=== PATIENT | male | born 1940 | race Caucasian/White ===

== ENCOUNTER → 2017-11-08 09:05 | Outpatient (CLI) | payer MEDICARE, SELFPAY ==
--- NOTE | 2017-11-08 | DI.CT.S_ITS ---
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 For radiation dose reduction, the following was used: automated exposure control, adjustment of mA and/or kV according to patient size. COMPARISON: [facility], CT, CT SOFT TISSUE NECK WO CON, 11/08/2017, 9:09. Outside Facility, RG, CT HEAD W/O CONTRAST, 10/23/2017, 15:08. FINDINGS: Image quality: Excellent. CSF spaces: Basal cisterns are patent. No extra-axial fluid collections. The ventricles are symmetric in size and shape. Brain: No intracranial bleeds or masses. There is cerebral volume loss for age, with resultant ventricular and sulcal prominence. There are periventricular and deep white matter chronic small vessel ischemic changes. There is intracranial internal carotid artery atherosclerosis. Skull and face: There is a prominent lytic process involving the left parietal calvarium, with full-thickness bone loss and overlying soft tissue gas and soft tissue thickening. There is a less prominent lytic process seen involving the right parietal calvarium. Soft tissue thickening involves the forehead to the left of the midline, as on series 4 image 18. Sinuses: Visualized sinuses and mastoids are clear. IMPRESSION: Examination similar to the outside prior, with a lytic process involving left frontal calvarium, with full-thickness bone loss. There is overlying soft tissue gas and soft tissue thickening seen. Stable right parietal calvarium partially lytic lesion. Stable soft tissue thickening can be seen involving the forehead, to the left of midline. No definite intracranial involvement can be seen. Dictated by: Charlie Escoto M.D. on 11/14/2017 at 16:25 Approved by: Charlie Escoto M.D. on 11/14/2017 at 16:29
--- NOTE | 2017-11-08 | DI.CT.S_ITS ---
PROCEDURE: CT SOFT TISSUE NECK WO CON INDICATIONS: Squamous cell cancer of scalp and of neck TECHNIQUE: Non-contrast 3.0 mm axial sections acquired from the sella to the aortic arch. Additional oblique axial 3.0 mm sections acquired through the pharynx. 3 mm thick coronal and sagittal reformats were generated. For radiation dose reduction, the following was used: automated exposure control. COMPARISON: Outside Facility, RG, CT HEAD W/O CONTRAST, 10/23/2017, 15:08. [facility], CT, CT HEAD/BRAIN WO CON, 11/08/2017, 9:09. This dictation was delayed, awaiting outside prior images, which have now arrived. FINDINGS: Image quality: Excellent. Lymph nodes: No enlarged lymph nodes seen throughout the neck. Vessels: Non-opacified vessels appear normal in caliber. Neck spaces: The oropharynx, nasopharynx, and pharynx demonstrate no mucosal lesions. The vocal cords, false vocal cords, pyriform sinuses, epiglottis, vallecula, and tongue base all appear normal. Extramucosal spaces appear unremarkable. Glands: The parotid and submandibular glands appear normal, without stones. Thyroid gland demonstrates no significant noncontrast abnormality. Miscellaneous: Visualized brain and orbits appear normal. Lung apices appear clear. Superficial soft tissues appear normal. Atherosclerotic calcification is noted. There is a partially visualized likely lytic process involving the right proximal humeral shaft, as on series 12 image 27. Relatively prominent cervical spine degenerative change can be seen at the C4-C5, C5-C6, and C6-C7 levels. Grade 1 anterolisthesis is seen at C3-C4 and C7-T1. Dextroconvex cervicothoracic curvature can be seen. IMPRESSION: No definite enlarged lymph nodes or soft tissue masses can be seen. There is partial visualization of a likely lytic process involving the right proximal humeral shaft. Please consider additional imaging, beginning with a plain film series. However, if a PET/CT is upcoming on this patient, it would likely display this area adequately. Incidental note is made of: Cervical spine degenerative change Dictated by: Charlie Escoto M.D. on 11/14/2017 at 16:05 Approved by: Charlie Escoto M.D. on 11/14/2017 at 16:25
== END ==
PROVIDERS: Family Provider Physician Assistant; PCP Physician Assistant; Visit Provider Plastic Surgery
DX: C44.42 Squamous cell carcinoma of skin of scalp and neck (principal); M50.30 Other cervical disc degeneration, unspecified cervical region
CPT/HCPCS: 70450; 70490

== ENCOUNTER → 2017-11-17 13:45 | Outpatient (CLI) | payer MEDICARE, SELFPAY | PROVIDERS: Family Provider Physician Assistant; PCP Physician Assistant; Visit Provider Internal Medicine | DX: C44.42 Squamous cell carcinoma of skin of scalp and neck (principal); D69.6 Thrombocytopenia, unspecified | CPT/HCPCS: 99213 ==

== ENCOUNTER → 2017-11-18 15:14 | Outpatient (CLI) | payer MEDICARE, SELFPAY | PROVIDERS: Family Provider Physician Assistant; PCP Physician Assistant; Visit Provider Internal Medicine | DX: C44.42 Squamous cell carcinoma of skin of scalp and neck (principal); D69.6 Thrombocytopenia, unspecified | CPT/HCPCS: 99212 ==

== ENCOUNTER → 2017-11-21 13:30 | Outpatient (CLI) | payer MEDICARE, SELFPAY | PROVIDERS: Family Provider Physician Assistant; PCP Physician Assistant; Visit Provider Internal Medicine | DX: C44.42 Squamous cell carcinoma of skin of scalp and neck (principal); D69.6 Thrombocytopenia, unspecified | CPT/HCPCS: 99212 ==

== ENCOUNTER → 2017-11-24 10:06 | Outpatient (CLI) | payer MEDICARE, SELFPAY | PROVIDERS: Family Provider Physician Assistant; PCP Physician Assistant; Visit Provider Internal Medicine ==

== ENCOUNTER → 2017-11-24 10:15 | Outpatient (CLI) | payer MEDICARE, SELFPAY ==
--- NOTE | 2017-11-24 | OV.WND_ITS ---
Progress Note Details Patient Name: Jerzy Briscoe Patient Number: [id number] PatientPatientDate: 11/24/2017 Clinician: Karissa Patel Clinician Cosigner: Tiff Banuelos Physician / Automatic Cigar Wrapper Tender: Tobi Casas SUBJECTIVE Chief Complaint This information was obtained from the patient Squamous cell skin cancer to scalp, non-healing wound. Allergies Augmentin (Reaction: swollen tounge), Aldactone HPI This information was obtained from the patient 11/24/17. Seen by Dr. Casas. 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 The patient nor his report problems with the dressing changes such as increased drainage, pain, or bleeding noting his thrombocytopenia. 11/17/17. Seen by Dr. Casas. The patient's new to our clinic and presents with a large squamous cell tumor over the posterior scalp. He's to attend the [facility] next Tuesday for is first visit and primarily requires dressing change recommendations noting there's been some intermittent and significant bleeding from the lesion over the past few weeks. He also reports low platelets in the 40's and received 2 units of platelets on a recent visit to the [facility]. Past Medical History This information was obtained from the patient Patient has a medical history of: Squamous cell carcinoma (scalp) Thrombocytopenia Restless Legs Right Ear Deafness Chronic Kidney Disease (stage 4) Hypertension Hyperlipidemia Prostate Cancer (Surgical removal) Gouty Arthritis Coronary Artery Disease (CAD) Lumbar DDD Complaints and Symptoms This information was obtained from the patient Patient complains of: General Notes: I have reviewed and concur with the Review of Systems and Past Family Social History documents completed by the clinician, I have reviewed and concur with the Wound Assessment document completed by the clinician Hematologic/Lymphatic: Bleeding / Clotting Disorders, Bleeding Tendency Integumentary (Hair/Skin/Nails): Open Sore Musculoskeletal: Muscle Weakness Prior Wound History: Bleeding, Drainage Patient denies complaints or symptoms related to: Cardiovascular (Central): Irregular heart beat Constitutional Symptoms (General Health): Fever Ear/Nose/Mouth/Throat: Hearing Loss / Aid Oncologic Respiratory: Shortness of Breath OBJECTIVE Constitutional Vital signs reviewed and noted. Frail appearing. Height/Length: 69 in (175.26 cm ), Weight: 149.2 lbs (67.82 kgs), BMI: 22, Temperature: 97.8 ?F (36.56 ?C), Pulse: 68 bpm, Respiratory Rate: 18 breaths/min, Blood Pressure: 103/69 mmHg, Pulse Oximetry: 98 %. Ears, Nose, Mouth, and Throat: No clinically significant hearing loss on informal examination. Integumentary (Hair, Skin) Mild periwound erythema. Refer to appropriate clinician wound documentation for this visit; large approx 8cm diameter indurated ulcer over posterior scalp extending to bone ; a few satellite lesions noted anteriorly, minimal bleeding. Wound #1 Head is a chronic Full Thickness Atypical and has received a status of Not Healed. Subsequent wound encounter measurements are 4.1cm length x 3.8cm width x 1.5cm depth, with an area of 15.58 sq cm and a volume of 23.37 cubic cm. No tunneling has been noted. No sinus tract has been noted. Undermining has been noted at 12:00 and ends at 12: 00 with a maximum distance of 1.5cm. There is a large amount of sanguineous drainage noted which has no odor. The patient reports a wound pain of level 7/10. The wound margin is irregular. Wound bed has No epithelialization, No eschar, Yes slough, Yes bright red, pink , firm granulation. The periwound skin texture is normal. The periwound skin moisture is normal. The periwound skin color is normal. The temperature of the periwound skin is WNL. Periwound skin does not exhibit signs or symptoms of infection. Local Pulse is N/A. Neurological: Cranial nerves grossly intact with symmetric function normal by informal observation.. ASSESSMENT Active Problems ICD-10 (Encounter Diagnosis) C44.42 - Squamous cell carcinoma of skin of scalp and neck (Encounter Diagnosis) D69.6 - Thrombocytopenia, unspecified PLAN Wound Orders: Wound #1 Head Cleanser Cleanse Wound: - Normal saline in Clinic. May use distilled water at home. May Shower. - Please avoid getting tap water in wound. Dressings Pack wound: - Puracol collagen. Primary dressing: - Adaptic. Cover and secure with: - Alginate cut to size of wound over top of adaptic. Mepilex 6x6 bordered foam to cover and secure. Silicone tape to reinforce edges. Change Dressing: - Drerssing change this Tuesday. Additional Orders: Follow-Up Appointments Return Appointment: - - One week. Other information: If you develop fever, chills, increased pain, drainage, redness or swelling please call our office. If after hours, respond to the ER. Should you experience any significant changes in your wound(s) or have any questions regarding your home care instructions please contact the wound center @ [phone]. If after hours, contact your primary care physician or go to the hospital emergency room. Scribing Attestation I attest, as the nurse, that I scribed these orders for the physician. I've reviewed the clinician's documentation and agree with the evaluation and plan as written. Also, the scalp ulcer appears stable and we'll continue to assist with dressing changes as needed. I've also advised him that we'll accommodate a same day appointment if possible should the drainage from the ulcer increase or if there are concerns for evolving infection. Electronic Signature(s) Signed By: Date: Tobi Casas MD 11/25/2017 08:42:30 Entered By: Tobi Casas on 11/24/2017 11:35:34
== END ==
PROVIDERS: Family Provider Physician Assistant; PCP Physician Assistant; Visit Provider Internal Medicine
DX: C44.42 Squamous cell carcinoma of skin of scalp and neck (principal); D69.6 Thrombocytopenia, unspecified
CPT/HCPCS: 99212

== ENCOUNTER → 2017-12-01 11:28 | Outpatient (CLI) | payer MEDICARE, SELFPAY ==
--- NOTE | 2017-12-01 | OV.WND_ITS ---
Progress Note Details Patient Name: Jerzy Briscoe Patient Number: [id number] PatientPatientDate: 12/01/2017 Clinician: Karissa Patel Clinician Cosigner: Dalia Tabares Physician / Executive Talent Acquisition Consultant: Simeon Abarca SUBJECTIVE Chief Complaint This information was obtained from the patient Squamous cell skin cancer to scalp, non-healing wound. Allergies Augmentin (Reaction: swollen tounge), Aldactone HPI This information was obtained from the patient 12/01/17. Seen by Sukhwinder Abarca PA-C. The patient reports continued copious drainage from his scalp lesion. He will be seeing [facility] providers this week for further testing regarding his squamous cell carcinoma. 11/24/17. Seen by Dr. Casas. 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 The patient nor his report problems with the dressing changes such as increased drainage, pain, or bleeding noting his thrombocytopenia. 11/17/17. Seen by Dr. Casas. The patient's new to our clinic and presents with a large squamous cell tumor over the posterior scalp. He's to attend the [facility] next Tuesday for is first visit and primarily requires dressing change recommendations noting there's been some intermittent and significant bleeding from the lesion over the past few weeks. He also reports low platelets in the 40's and received 2 units of platelets on a recent visit to the [facility]. Family History This information was obtained from the patient Diabetes - Sibling, Heart Disease - Mother, Hypertension - Mother, Child, Kidney Disease - Sibling, Stroke - Father Social History This information was obtained from the patient Alcohol Use - occasional, Caffeine Use - 4 cups day, Children, Lives in, Retired , Tobacco Use - 10 a day Past Medical History This information was obtained from the patient Patient has a medical history of: Squamous cell carcinoma (scalp) Thrombocytopenia Restless Legs Right Ear Deafness Chronic Kidney Disease (stage 4) Hypertension Hyperlipidemia Prostate Cancer (Surgical removal) Gouty Arthritis Coronary Artery Disease (CAD) Lumbar DDD Complaints and Symptoms This information was obtained from the patient Patient complains of: General Notes: I have reviewed and concur with the Review of Systems and Past Family Social History documents completed by the clinician, I have reviewed and concur with the Wound Assessment document completed by the clinician Hematologic/Lymphatic: Bleeding / Clotting Disorders, Bleeding Tendency Integumentary (Hair/Skin/Nails): Open Sore Musculoskeletal: Muscle Weakness Prior Wound History: Bleeding, Drainage Patient denies complaints or symptoms related to: Cardiovascular (Central): Irregular heart beat Constitutional Symptoms (General Health): Fever Ear/Nose/Mouth/Throat: Hearing Loss / Aid Oncologic Respiratory: Shortness of Breath OBJECTIVE Constitutional Vital signs reviewed and noted. Well developed, lucid, and in no acute distress. . Height/Length: 69 in (175.26 cm), Weight: 149.2 lbs (67.82 kgs), BMI: 22, Temperature: 98.6 ?F (37 ?C), Pulse: 68 bpm, Respiratory Rate: 18 breaths/min, Blood Pressure: 126 /81 mmHg, Pulse Oximetry: 98 %. Eyes: Conjunctiva clear and without icterus. Pupils are equal and round; EOM's intact. Respiratory: No respiratory distress. Even respirations and without use of accessory muscles.. Integumentary (Hair, Skin) Refer to appropriate clinician wound documentation for this visit; ulcer extends to subcutaneous fat layer. . Wound #1 Head is a chronic Full Thickness Atypical and has received a status of Not Healed. Subsequent wound encounter measurements are 6cm length x 4.3cm width x 0.4cm depth, with an area of 25.8 sq cm and a volume of 10.32 cubic cm. There is a large amount of sanguineous drainage noted which has no odor. The patient reports a wound pain of level 7/10. The wound margin is irregular. Wound bed has No epithelialization, No eschar, Yes slough, Yes bright red, pink, firm granulation. The periwound skin texture is normal. The periwound skin moisture is normal. The periwound skin color is normal. The temperature of the periwound skin is WNL. Periwound skin does not exhibit signs or symptoms of infection. Local Pulse is N/A. Psychiatric: Judgement and insight: Normal affect with normal thought pattern. Alert and oriented 3/3. Memory grossly intact.. Normal affect. Mood appropriate.. ASSESSMENT Active Problems ICD-10 (Encounter Diagnosis) C44.42 - Squamous cell carcinoma of skin of scalp and neck (Encounter Diagnosis) S01.80XD - Unspecified open wound of other part of head, subsequent encounter PLAN Wound Orders: Wound #1 Head Cleanser Cleanse Wound: - With Normal Saline or distilled water. Dressings Pack wound: - Collagen to wound base. Primary dressing: - Adaptic over collagen then place silver alginate over adaptic. Cover and secure with: - Boarder foam. Change Dressing: - Every 2 days Follow-Up Appointments Return Appointment: - - Return in 7-10 days Other information: If you develop fever, chills, increased pain, drainage, redness or swelling please call our office. If after hours, respond to the ER. Should you experience any significant changes in your wound(s) or have any questions regarding your home care instructions please contact the wound center @ [phone]. If after hours, contact your primary care physician or go to the hospital emergency room. Scribing Attestation I attest, as the nurse, that I scribed these orders for the physician. I've reviewed the clinician's documentation and agree with the evaluation and plan as written. The patient's condition continues to be medically complex requiring continued and regular specialty wound care clinic visits. To that end we will continue with routine dressing changes and in clinic medical assessments including surveillance for bacterial infection as well as routine debridements of non-viable tissue when needed. Electronic Signature(s) Signed By: Date: Sukhwinder Abarca 12/05/2017 12:48:23 Entered By: Sukhwinder Abarca on 12/05/2017 10:23:40
== END ==
PROVIDERS: Family Provider Physician Assistant; PCP Physician Assistant; Visit Provider Physician Assistant
DX: C44.42 Squamous cell carcinoma of skin of scalp and neck (principal); S01.80XD Unspecified open wound of other part of head, subsequent encounter
CPT/HCPCS: 99212

== ENCOUNTER → 2017-12-15 13:34 | Outpatient (CLI) | payer MEDICARE, SELFPAY | PROVIDERS: Family Provider Physician Assistant; PCP Physician Assistant; Visit Provider Internal Medicine | DX: C44.42 Squamous cell carcinoma of skin of scalp and neck (principal); S01.80XD Unspecified open wound of other part of head, subsequent encounter; N18.6 End stage renal disease | CPT/HCPCS: 99212 ==

== ENCOUNTER → 2017-12-26 09:39 | Outpatient (CLI) | payer MEDICARE, SELFPAY ==
--- NOTE | 2017-12-26 | OV.WND_ITS ---
Progress Note Details Patient Name: Jerzy Briscoe Patient Number: [id number] PatientPatientDate: 12/26/2017 Clinician: Maria Fernanda Canseco Clinician Cosigner: Celine Vaca Physician / Elevator Worker: Tobi Casas SUBJECTIVE Chief Complaint This information was obtained from the patient Squamous cell skin cancer to scalp, non-healing wound. Allergies Augmentin (Reaction: swollen tounge), Aldactone HPI This information was obtained from the patient 12/26/17. Seen by Dr. Casas. The patient's reports heavy drainage on his dressings covering the squamous cell carcinoma over the posterior scalp and she's changing the dressings every other day. He continues on chemotherapy and they are not sure what his current platelet count is but report friability and troublesome bleeding when dressings are changed. 12/15/17. Seen by Dr. Casas. The patient and his report significant drainage associated with the squamous cell carcinoma of the scalp and she changing the dressing every other day stating the dressings are soaked. He's received his 1st dose of chemotherapy and has an appointment with surgery next week. He's also started dialysis and does not report any acute issues at this time. 12/01/17. Seen by Sukhwinder Abarca PA-C. The patient reports continued copious drainage from his scalp lesion. He will be seeing [facility] providers this week for further testing regarding his squamous cell carcinoma. 11/24/17. Seen by Dr. Casas. 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 The patient nor his report problems with the dressing changes such as increased drainage, pain, or bleeding noting his thrombocytopenia. 11/17/17. Seen by Dr. Casas. The patient's new to our clinic and presents with a large squamous cell tumor over the posterior scalp. He's to attend the [facility] next Tuesday for is first visit and primarily requires dressing change recommendations noting there's been some intermittent and significant bleeding from the lesion over the past few weeks. He also reports low platelets in the 40's and received 2 units of platelets on a recent visit to the [facility]. Past Medical History This information was obtained from the patient Patient has a medical history of: Squamous cell carcinoma (scalp) Thrombocytopenia Restless Legs Right Ear Deafness Chronic Kidney Disease (stage 4) Hypertension Hyperlipidemia Prostate Cancer (Surgical removal) Gouty Arthritis Coronary Artery Disease (CAD) Lumbar DDD Complaints and Symptoms This information was obtained from the patient Patient complains of: General Notes: I have reviewed and concur with the Review of Systems and Past Family Social History documents completed by the clinician, I have reviewed and concur with the Wound Assessment document completed by the clinician Hematologic/Lymphatic: Bleeding / Clotting Disorders, Bleeding Tendency Integumentary (Hair/Skin/Nails): Open Sore Musculoskeletal: Muscle Weakness Prior Wound History: Bleeding, Drainage Patient denies complaints or symptoms related to: Cardiovascular (Central): Irregular heart beat Constitutional Symptoms (General Health): Fever Ear/Nose/Mouth/Throat: Hearing Loss / Aid Oncologic Respiratory: Shortness of Breath OBJECTIVE Constitutional BP elevated; Afebrile; Alert and in no distress. Frail appearing. Height/Length : 69 in (175.26 cm), Weight: 146.3 lbs (66.5 kgs), BMI: 21.6, Temperature: 98 ?F (36.67 ?C), Pulse: 75 bpm, Respiratory Rate: 18 breaths/min, Blood Pressure: 152/78 mmHg, Pulse Oximetry: 96 %. Ears, Nose, Mouth, and Throat: No clinically significant hearing loss on informal examination. Respiratory: No respiratory distress. Even respirations and without use of accessory muscles.. Integumentary (Hair, Skin) Refer to appropriate clinician wound documentation for this visit; large approx 8cm diameter indurated ulcer over posterior scalp extending to bone; a few satellite lesions noted anteriorly, ulcer base friable and bleeds easily when touched with gauze. Wound #1 Head is a chronic Full Thickness Atypical and has received a status of Not Healed. Subsequent wound encounter measurements are 6.2cm length x 4.5cm width x 0.7cm depth, with an area of 27.9 sq cm and a volume of 19.53 cubic cm. No tunneling has been noted. Undermining has been noted at 8:00 and ends at 10:00 with a maximum distance of 0.5cm. There is a large amount of sanguineous drainage noted which has no odor. The patient reports a wound pain of level 7/10. The wound margin is irregular. Wound bed has No epithelialization, No eschar, Yes slough, Yes bright red, firm granulation. The periwound skin texture is normal. The periwound skin moisture is normal. The periwound skin color is normal. The temperature of the periwound skin is WNL. Periwound skin does not exhibit signs or symptoms of infection. Local Pulse is N/A. Neurological: Cranial nerves grossly intact with symmetric function normal by informal observation.. ASSESSMENT Active Problems ICD-10 (Encounter Diagnosis) C44.42 - Squamous cell carcinoma of skin of scalp and neck (Encounter Diagnosis) S01.80XD - Unspecified open wound of other part of head, subsequent encounter PLAN Wound Orders: Wound #1 Head Cleanser Cleanse Wound: - With Normal Saline or distilled water. Dressings Pack wound: - Aquacel to Wound bed. Cover and secure with: - Mextra superabsorbant Change Dressing: - Every. Follow-Up Appointments Return Appointment: - - Return in 7-10 days Other information: If you develop fever, chills, increased pain, drainage, redness or swelling please call our office. If after hours, respond to the ER. Should you experience any significant changes in your wound(s) or have any questions regarding your home care instructions please contact the wound center @ [phone]. If after hours, contact your primary care physician or go to the hospital emergency room. Scribing Attestation I attest, as the nurse, that I scribed these orders for the physician. I've reviewed the clinician's documentation and agree with the evaluation and plan as written. Also, I've recommended increasing dressing changes to daily as the ulcer base is friable and appears somewhat hypergranulated. Electronic Signature(s) Signed By: Date: Tobi Casas MD 12/26/2017 13:33:28 Entered By: Tobi Casas on 12/26/2017 13:28:43
== END ==
PROVIDERS: Family Provider Physician Assistant; PCP Physician Assistant; Visit Provider Internal Medicine
DX: C44.42 Squamous cell carcinoma of skin of scalp and neck (principal); S01.80XD Unspecified open wound of other part of head, subsequent encounter
CPT/HCPCS: 99212

== ENCOUNTER → 2018-01-09 10:28 | Outpatient (CLI) | payer MEDICARE, SELFPAY ==
--- NOTE | 2018-01-09 | OV.WND_ITS ---
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 Allergies Augmentin (Reaction: swollen tounge), Aldactone HPI This information was obtained from the patient 01/09/18. Seen by Dr. Casas. The patient reports some pain associated with the scalp wound upon probing today but otherwise does not report acute changes regarding the large squamous cell carcinoma. His feels the current dressing regimen has been adequate and he's scheduled for resection of the lesion by plastic surgery at on January 27. He also continues on chemotherapy and states his platelets are above 100. 12/26/17. Seen by Dr. Casas. The patient's reports heavy drainage on his dressings covering the squamous cell carcinoma over the posterior scalp and she's changing the dressings every other day. He continues on chemotherapy and they are not sure what his current platelet count is but report friability and troublesome bleeding when dressings are changed. 12/15/17. Seen by Dr. Casas. The patient and his report significant drainage associated with the squamous cell carcinoma of the scalp and she changing the dressing every other day stating the dressings are soaked. He's received his 1st dose of chemotherapy and has an appointment with surgery next week. He's also started dialysis and does not report any acute issues at this time. 12/01/17. Seen by Sukhwinder Abarca PA-C. The patient reports continued copious drainage from his scalp lesion. He will be seeing [facility] providers this week for further testing regarding his squamous cell carcinoma. 11/24/17. Seen by Dr. Casas. 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 The patient nor his report problems with the dressing changes such as increased drainage, pain, or bleeding noting his thrombocytopenia. 11/17/17. Seen by Dr. Casas. The patient's new to our clinic and presents with a large squamous cell tumor over the posterior scalp. He's to attend the [facility] next Tuesday for is first visit and primarily requires dressing change recommendations noting there's been some intermittent and significant bleeding from the lesion over the past few weeks. He also reports low platelets in the 40's and received 2 units of platelets on a recent visit to the [facility]. Past Medical History This information was obtained from the patient Patient has a medical history of: Squamous cell carcinoma (scalp) Thrombocytopenia Restless Legs Right Ear Deafness Chronic Kidney Disease (stage 4) Hypertension Hyperlipidemia Prostate Cancer (Surgical removal) Gouty Arthritis Coronary Artery Disease (CAD) Lumbar DDD Complaints and Symptoms This information was obtained from the patient Patient complains of: General Notes: I have reviewed and concur with the Review of Systems and Past Family Social History documents completed by the clinician, I have reviewed and concur with the Wound Assessment document completed by the clinician Hematologic/Lymphatic: Bleeding / Clotting Disorders, Bleeding Tendency Integumentary (Hair/Skin/Nails): Open Sore Musculoskeletal: Muscle Weakness Prior Wound History: Bleeding, Drainage Patient denies complaints or symptoms related to: Cardiovascular (Central): Irregular heart beat Constitutional Symptoms (General Health): Fever Ear/Nose/Mouth/Throat: Hearing Loss / Aid Oncologic Respiratory: Shortness of Breath OBJECTIVE Constitutional Vital signs reviewed and noted. Frail appearing. Height/Length: 69 in (175.26 cm ), Weight: 139.7 lbs (63.5 kgs), BMI: 20.6, Temperature: 98.2 ?F (36.78 ?C), Pulse: 66 bpm , Respiratory Rate: 18 breaths/min, Blood Pressure: 118/72 mmHg, Pulse Oximetry: 94 %. Ears, Nose, Mouth, and Throat: No clinically significant hearing loss on informal examination. Respiratory: No respiratory distress. Even respirations and without use of accessory muscles.. Integumentary (Hair, Skin) No periwound erythema, warmth, or significant drainage. No periwound rashes appreciated or noted otherwise.. Refer to appropriate clinician wound documentation for this visit; posterior scalp ulcer appears clean with base covered with pink granulation; induration improved from previous review. Wound #1 Head is a chronic Full Thickness Atypical and has received a status of Not Healed. Subsequent wound encounter measurements are 6.1cm length x 4.5cm width x 0.6cm depth, with an area of 27.45 sq cm and a volume of 16.47 cubic cm. No tunneling has been noted. No sinus tract has been noted. Undermining has been noted at 8:00 and ends at 10: 00 with a maximum distance of 0.5cm. There is a large amount of sero-sanguineous drainage noted which has no odor. The patient reports a wound pain of level 7/10. The wound margin is irregular. Wound bed has No epithelialization, No eschar, Yes slough, Yes bright red, pink, firm granulation. The periwound skin texture is normal. The periwound skin moisture is normal. The periwound skin color is normal. The temperature of the periwound skin is WNL. Periwound skin does not exhibit signs or symptoms of infection. Local Pulse is N/A. Neurological: Cranial nerves grossly intact with symmetric function normal by informal observation.. ASSESSMENT Active Problems ICD-10 (Encounter Diagnosis) C44.42 - Squamous cell carcinoma of skin of scalp and neck (Encounter Diagnosis) S01.80XD - Unspecified open wound of other part of head, subsequent encounter PLAN Wound Orders: Wound #1 Head Cleanser Cleanse Wound: - With Normal Saline or distilled water. Dressings Pack wound: - Aquacel to Wound bed. Cover and secure with: - Sorbion sachet S 4x4 dressing, secured with silicone tape. Change Dressing: - Daily. Follow-Up Appointments Return Appointment: - - 01/19/18. Other information: If you develop fever, chills, increased pain, drainage, redness or swelling please call our office. If after hours, respond to the ER. Should you experience any significant changes in your wound(s) or have any questions regarding your home care instructions please contact the wound center @ [phone]. If after hours, contact your primary care physician or go to the hospital emergency room. Scribing Attestation I attest, as the nurse, that I scribed these orders for the physician. General Notes: Supply order submitted today, will be sent out around 01/15/18. I've reviewed the clinician's documentation and agree with the evaluation and plan as written. Also, the patient's will continue with the current dressing regimen and we' ll see the patient once more in clinic before his surgery on January 27. Electronic Signature(s) Signed By: Date: Tobi Casas MD 01/10/2018 07:58:14 Entered By: Tobi Casas on 01/10/2018 07:52:05
== END ==
PROVIDERS: Family Provider Physician Assistant; PCP Physician Assistant; Visit Provider Internal Medicine
DX: C44.42 Squamous cell carcinoma of skin of scalp and neck (principal); S01.80XD Unspecified open wound of other part of head, subsequent encounter
CPT/HCPCS: 99212

== ENCOUNTER → 2019-10-04 09:37 | Outpatient (CLI) | payer MEDICARE, SELFPAY ==
--- NOTE | 2019-10-04 | DI.MRI.S_ITS ---
PROCEDURE: MR LUMBAR SPINE WO CON INDICATIONS: Low back pain TECHNIQUE: Noncontrast sagittal T1 spin echo and T2 fast echo, sagittal STIR, axial T1 and T2 fast spin echo through the lumbar spine. In cases with scoliosis, additional coronal T2 fast spin echo may be performed. COMPARISON: [facility], CR, XR LUMBAR SPINE 2 OR 3VW, 06/10/2015, 12:21. [facility], MR, ABDOMEN WITHOUT CONTRAST, 10/10/2017, 7:03. FINDINGS: Image quality: Excellent. Alignment and Curvature: 5 lumbar type vertebral bodies are present by plain film. There is loss of normal lumbar lordosis. Bone Marrow: Marrow is of normal overall signal. There is moderate wedging of L4 which demonstrates ill-defined linear low T1/T2 signal intensity traversing its superior endplate. A Schmorl's node invaginates the superior L4 endplate. There is severe ill-defined STIR signal in a patient throughout the mid and superior aspects of the L4 vertebral body. Mild reactive signal within the endplates adjacent to the T10-T11, T11-T12, T12-L1, L1-L2, L2-L3, L3-L4, L4-L5, and L5-S1 intervertebral discs. Spinal Cord: Conus medullaris terminates at the lower L1 level. Visualized cord demonstrates normal signal and size. Paraspinous Soft Tissues: Multiple bilateral renal cysts are present, as before. L1-L2: Mild disc desiccation and diffuse disc bulge. No significant canal, nor foraminal stenosis. L2-L3: Moderate disc height loss and desiccation. Mild diffuse disc bulge. Mild facet and ligament flavum hypertrophy. Mild canal stenosis. Mild bilateral foraminal stenosis. L3-L4: Moderate disc desiccation. Mild diffuse disc bulge. Mild facet and ligament flavum hypertrophy. Mild epidural lipomatosis. Mild canal stenosis. Mild bilateral foraminal stenosis. L4-L5: Moderate disc desiccation. Moderate diffuse disc bulge. Mild facet and ligament flavum hypertrophy. Mild epidural lipomatosis. Mild canal stenosis. Moderate bilateral foraminal stenosis. L5-S1: Moderate disc desiccation. Mild diffuse disc bulge. Mild facet and ligamentum flavum hypertrophy. Mild canal stenosis. Mild bilateral foraminal stenosis. IMPRESSION: 1. Subacute L4 compression fracture. This lesion would be amenable to percutaneous vertebral augmentation. Interventional radiology consultation at [facility] could be obtained, if clinically indicated. 2. Multilevel degenerative disc and facet disease, as well as ligamentum flavum hypertrophy and epidural lipomatosis. 3. Mild multilevel canal stenosis. 4. Multilevel foraminal stenoses, worst at L4-L5 where there are moderate foraminal stenoses. Dictated by: Vinicius Phillips M.D. on 10/04/2019 at 10:56 Approved by: Vinicius Phillips M.D. on 10/04/2019 at 11:04
== END ==
PROVIDERS: Family Provider Physician Assistant; PCP Internal Medicine; Referring Provider Internal Medicine; Visit Provider Internal Medicine
DX: M54.5 Low back pain (principal); M48.56XA Collapsed vertebra, not elsewhere classified, lumbar region, initial encounter for fracture; M51.36 Other intervertebral disc degeneration, lumbar region; M51.37 Other intervertebral disc degeneration, lumbosacral region; M48.062 Spinal stenosis, lumbar region with neurogenic claudication; M48.07 Spinal stenosis, lumbosacral region; E88.2 Lipomatosis, not elsewhere classified
CPT/HCPCS: 72148

== ENCOUNTER → 2019-11-15 13:02 | Outpatient (CLI) | payer MEDICARE, SELFPAY ==
--- NOTE | 2019-11-15 13:04 | DI.RAD.S_ITS ---
PROCEDURE: XR LUMBAR SPINE MIN 4V INDICATIONS: Low back pain TECHNIQUE: 5 views of the lumbar spine were acquired. COMPARISON: [facility], CT, KIDNEY/ URETER/BLADDER, 09/12/2015, 12:16. [facility], MR, ABDOMEN WITHOUT CONTRAST, 10/10/2017, 7:03. [facility], MR, MR LUMBAR SPINE WO CON, 10/04/2019, 10:11. FINDINGS: Bones: 5 nonrib-bearing vertebrae are present. There is normal bony alignment. No new vertebral body compression fractures. In addition to the previously identified superior endplate impaction fracture at L4, best seen by MR scanning 10/04/19. No suspicious bony lesions. Soft tissues: Overlying bowel gas pattern is normal. No suspicious soft tissue calcifications. Oblique images: No pars defects. IMPRESSION: Degenerative disc disease has not appreciably worsened over the lumbosacral spine, mild to moderate in overall severity. A previously present superior L4 endplate impaction fracture is again noted, and was not present in September [address] scanning that included that area. No osteolytic or blastic change is seen, osteoporotic compression fracture is the likely cause. No significant malalignment. Dictated by: Michael Cannon M.D. on 11/15/2019 at 14:59 Approved by: Michael Cannon M.D. on 11/15/2019 at 15:04
== END ==
PROVIDERS: Family Provider Physician Assistant; PCP Internal Medicine; Referring Provider Physical Medicine & Rehabilitation; Visit Provider Physical Medicine & Rehabilitation
DX: M54.5 Low back pain (principal); M51.37 Other intervertebral disc degeneration, lumbosacral region; S32.049A Unspecified fracture of fourth lumbar vertebra, initial encounter for closed fracture
CPT/HCPCS: 72110

== ENCOUNTER → 2021-01-27 15:11 | Outpatient (CLI) | payer MEDICARE, SELFPAY ==
[2021-01-27 18:15] LABS: Prostate Specific Antigen < 0.064 ng/mL (0.10-4.00)
== END ==
PROVIDERS: Family Provider Physician Assistant; PCP Internal Medicine; Visit Provider Urology
DX: R30.0 Dysuria (principal); R31.0 Gross hematuria; C44.42 Squamous cell carcinoma of skin of scalp and neck; N18.6 End stage renal disease; Z99.2 Dependence on renal dialysis; Z85.46 Personal history of malignant neoplasm of prostate; Z90.79 Acquired absence of other genital organ(s)
CPT/HCPCS: 36415; 81002; 84153; 87086; 99215

== ENCOUNTER → 2021-02-24 13:58 | Outpatient (CLI) | payer MEDICARE, SELFPAY ==
--- NOTE | 2021-02-24 14:24 | DI.CT.S_ITS ---
PROCEDURE: CT ABDOMEN PELVIS WO CON INDICATIONS: Gross hematuria TECHNIQUE: Axial sections were acquired from the lung bases to the pubic symphysis. Coronal and sagittal reformats were performed. For radiation dose reduction, the following was used: automated exposure control, adjustment of mA and/or kV according to patient size. COMPARISON: [facility], CR, XR LUMBAR SPINE MIN 4V, 11/15/2019, 12:29. [facility], MR, ABDOMEN WITHOUT CONTRAST, 10/10/2017, 7:03. [facility], XA, SI TUNNELED CATHETER, 11/28/2017, 15:44. [facility], US, US ABDOMEN LIMITED, 10/30/2020, 9:27. FINDINGS: Image quality: Excellent. Lung bases: Right lung base atelectasis or scarring. No pleural effusion. Heart: Coronary artery calcifications. Mitral annular calcifications. Gynecomastia. URINARY: Kidneys: Autosomal dominant polycystic kidneys. Largest cyst on the right measures 11.8 cm. Largest cyst on the left measures 13.9 cm. No kidney stones or hydroureter identified. The most distal ureters are seen. Overall the kidneys appears similar to the MRI from 2018. Bladder: Decompressed. Bladder wall is prominent. ABDOMEN: Liver: Very large cyst in the right lobe of the liver measuring 16.5 cm, (01/06). There is an adjacent rim calcified cyst measuring 10.9 cm which may be confluent. Small cyst in segment 4. Gallbladder: Subtle high-density material in the gallbladder. This could be due to sludge or stones. Biliary ducts: No dilatation appreciated. Pancreas: Unremarkable. Spleen: No splenomegaly. Adrenal Glands: No nodule. Stomach and Bowel: Stomach, small bowel loops, and colon are unremarkable. Peritoneum: No abnormal intraperitoneal fluid. No free air. Ventral Wall: No hernia. Abdominal Nodes: No enlarged retroperitoneal or mesenteric lymph nodes. Vessels: Aorta and inferior vena cava are normal in size. Extensive aortoiliac atherosclerotic plaque. PELVIS: Pelvic Organs: Prostatectomy. Pelvic Nodes: No enlarged nodes seen. Miscellaneous: Left inguinal hernia containing trace fluid. Bones: L4 compression fracture, new compared to November 2019. Multilevel DDD. No sclerotic lesions identified. Calcifications at the posterior left chest wall on the external side of the ribs. IMPRESSION: 1. No hydronephrosis or kidney stones identified. 2. Enlarged polycystic kidneys consistent with ADPCKD. 3. Large hepatic cysts. 4. Sludge or gallstones. 5. Prostatectomy. No sclerotic osseous lesions identified. No adenopathy. 6. L4 compression fracture which is new in the interval compared to November 2019. Dictated by: Mason Dutton M.D. on 02/24/2021 at 15:27 Approved by: Mason Dutton M.D. on 02/24/2021 at 15:49
== END ==
PROVIDERS: Family Provider Physician Assistant; PCP Internal Medicine; Referring Provider Urology; Visit Provider Urology
DX: R31.0 Gross hematuria (principal); K76.89 Other specified diseases of liver
CPT/HCPCS: 74176

== ENCOUNTER → 2021-03-10 11:36 | Outpatient (CLI) | payer MEDICARE, SELFPAY ==
[2021-03-10 11:48] LABS: Appearance Urine UA CLOUDY; Bilirubin Urine UA NEGATIVE (NEGATIVE); Color Urine UA ORANGE; Glucose Urine UA NEGATIVE (Negative); Ketones Urine UA NEGATIVE (NEGATIVE); Leukocyte Esterase Urine UA TRACE (NEGATIVE); Nitrite Urine UA NEGATIVE (Negative); Occult Blood Urine UA 3+ (Negative); Protein Urine UA 3+ (Negative); Urobilinogen Urine UA 0.2 E.U./dL (0.2); pH Urine UA 7.5 (4.5-8.0)
[2021-03-10 11:54] LABS: Bacteria Urine None Seen; Culture Indicated Urine Cult Not Indicated; RBC Urine >100/HPF (0-5/HPF); WBC Urine None Seen (0-5/HPF)
== END ==
PROVIDERS: Family Provider Physician Assistant; PCP Internal Medicine; Visit Provider Urology
DX: R31.0 Gross hematuria (principal); Q61.3 Polycystic kidney, unspecified; N18.6 End stage renal disease; Z90.79 Acquired absence of other genital organ(s); Z85.46 Personal history of malignant neoplasm of prostate
CPT/HCPCS: 81001; 99213

== ENCOUNTER → 2021-09-22 15:25 | Outpatient (CLI) | payer MEDICARE, SELFPAY ==
--- NOTE | 2021-09-22 15:29 | DI.RAD.S_ITS ---
PROCEDURE: XR CHEST 2V INDICATIONS: wheezing TECHNIQUE: 2 views of the chest were acquired. COMPARISON: [facility], CR, XR CHEST 1 VIEW, 10/20/2017, 19:20. FINDINGS: Surgical changes and devices: Left subclavian chest port is been placed with tube tip projected over the mid superior vena cava. Surgical clips within the lower neck. Left axillary surgical clips. Lungs and pleura: Examination is limited secondary to over penetrated technique. 1.9 cm rounded opacity projected over the mid left lung. Interstitium is prominent. No focal lung consolidation. Chronic elevation right hemidiaphragm. Mediastinum: Mediastinal contours are normal. Heart size is enlarged. Bones and chest wall: No suspicious bony abnormalities. Soft tissues appear unremarkable. IMPRESSION: 1. Exam limited secondary to overpenetrated technique. 2. 1.9 cm rounded opacity projected over the mid left lung. Pulmonary nodule cannot be excluded and attention on follow-up two view chest radiograph is recommended. 3. Mild interstitial prominence which appears similar to prior examination. 4. Chronic elevation of the right hemidiaphragm. Dictated by: Da Ba [facility] Interpreted: Abad Jenkins MD on 09/22/2021 at 16:32 Transcribed by: JOSE on 09/22/2021 at 16:35 Approved by: Abad Jenkins M.D. on 09/22/2021 at 18:06
== END ==
PROVIDERS: Family Provider Physician Assistant; PCP Internal Medicine; Referring Provider Internal Medicine; Visit Provider Internal Medicine
DX: R06.2 Wheezing (principal)
CPT/HCPCS: 71046

== ENCOUNTER 2021-10-04 11:17 | Emergency (ER) | payer MEDICARE, SELFPAY ==
[2021-10-04 11:29] VITALS: BP 153/73; PULSE 80; RESP 16; TEMP 36.5; O2SAT 97; BMI 20.7
--- NOTE | 2021-10-04 11:36 | DI.RAD.S_ITS ---
PROCEDURE: XR HIP W PEL IF DONE LT 2V INDICATIONS: Fall, pain with lifting leg TECHNIQUE: 2 views of the hip were acquired. COMPARISON: None. FINDINGS: Bones: No fractures or dislocations. No suspicious bony lesions. The visualized pelvic ring appears intact. Mild degenerative changes of the hips. Soft tissues: No suspicious soft tissue calcifications or masses. Multiple surgical clips are seen in the pelvis left thigh. Vasculature has atherosclerotic calcifications. IMPRESSION: No acute abnormality. Dictated by: Wallace Bland M.D. on 10/04/2021 at 11:57 Approved by: Wallace Bland M.D. on 10/04/2021 at 11:59
--- NOTE | 2021-10-04 13:39 | ED.FALL ---
HPI - Fall General Chief Complaint: Fall Stated Complaint: Fall last night, pain in left hip/leg Time Seen by Provider: 10/04/21 13:39 Mode of arrival: Wheelchair History of Present Illness HPI Narrative: 81-year-old gentleman with history of end-stage renal disease on dialysis, hypertension, hyperlipidemia, coronary artery disease who stepped outside on the porch last night in the dark, ended up missing a single step, falling onto his left hip and buttock into the grass. He was able to get up at that time but over the course of the evening has had increasing pain and by this morning he is having difficulty lifting his left leg to walk. He is able to stand and bear weight. He has taken 2 extra Strength Tylenol over the last 12 hours. He describes no fevers, cough, chills, dizziness, vertigo, palpitations. He is very clear that the reason for his fall is purely mechanical. He has otherwise been doing fairly well. Related Data Home Medications Medication Instructions Recorded Confirmed allopurinol 300 mg tablet mg PO 12/05/19 03/10/21 carbidopa 25 mg-levodopa 100 mg tab PO BEDTIME tab 12/05/19 03/10/21 tablet carvedilol 25 mg tablet mg PO 12/05/19 03/10/21 furosemide 80 mg tablet mg PO DAILY tab 12/05/19 03/10/21 potassium chloride 20 mEq meq PO 12/05/19 03/10/21 tablet,extended release(part/cryst) pramipexole 0.5 mg tablet mg PO 12/05/19 03/10/21 rosuvastatin 20 mg tablet mg PO DAILY tab 12/05/19 03/10/21 Previous Rx's Medication Instructions Recorded calcitonin (salmon) 200 1 spray INTRANASAL (ALT) DAILY 60 12/05/19 unit/actuation nasal spray Days #3.7 ml oxycodone-acetaminophen 5 mg-325 1 tab PO Q6H PRN #10 tab 10/04/21 mg tablet Allergies Allergy/AdvReac Type Severity Reaction Status Date / Time No Known Drug Allergies Allergy Unverified 10/04/21 11:35 Review of Systems Review of Systems Narrative: Remainder of complete review of systems is otherwise unremarkable except for that included in the HPI. Patient History Medical History Compression fracture of L4 vertebra End stage renal disease Gross hematuria Hemodialysis access, fistula mature Hemodialysis status Herniated nucleus pulposus, L4-5 History of prostate cancer HTN (hypertension) Hx of coronary artery disease Polycystic kidney disease Renal failure Restless leg syndrome Right hamstring muscle strain Squamous cell cancer of scalp and skin of neck Surgical History H/O hernia repair History of surgery of head Hx of prostatectomy Hx of right coronary artery stent placement Family History Father Stroke Mother Heart disease Brother Diabetes mellitus Kidney disease Sister Diabetes mellitus Anemia Social History Smoking Status: Current every day smoker Smoking Status: Current every day smoker Substance Use Type: does not use Exam Initial Vital Signs Initial Vital Signs: Vital Signs Temperature 97.7 F 10/04/21 11:29 Pulse Rate 80 10/04/21 11:29 Respiratory Rate 16 10/04/21 11:29 Blood Pressure 153/73 H 10/04/21 11:29 Pulse Oximetry 97 10/04/21 11:29 General: Chronically ill-appearing but, in no acute distress. Able to give a complete and coherent history. Well-nourished well-developed HEENT: Moist mucous membranes, normal sclera with reactive pupils, hard of hearing. Large skin graft area over his skull. Neck: No JVD, supple Respiratory: Lungs are clear to auscultation, no wheezing no rales no rhonchi. Full and symmetrical air movement Cardiac: Regular rate and rhythm no murmurs no bruits Abdomen: Soft, nontender, good bowel tones, no flank pain Skin: Thin, dry multiple prior bruises in various stages of healing Neurologic: Moving all extremities, cognitively appropriate, no complaints of headache Extremities: Left leg with significant atrophy of the thigh muscles after skin grafting from that leg as well as a quadriceps tear a number of years ago. Decreased range of motion at the knee and the hip at baseline. Seems to be at his baseline but does complain of pain with flexion and external rotation of the hip. Palpable pulses are noted bilaterally . His left arm dialysis fistula has a nice thrill palpable Psych: Cooperative, appropriate insight and affect Course Orders Ordered: ED Orders 10/04/21 11:36 XR hip w pel if done LT 2V Stat Vital Signs Vital signs: Vital Signs - 8 hr 10/04/21 11:29 10/04/21 14:06 Temperature 97.7 F Pulse Rate 80 68 Respiratory Rate 16 18 Blood Pressure 153/73 H 166/74 H Pulse Oximetry 97 97 MDM - Fall Imaging Data X-ray hip and pelvis: Radiologist's Impression: FINDINGS:? ? Bones:? No fractures or dislocations.? No suspicious bony lesions.? The visualized pelvic ring appears intact.? Mild degenerative changes of the hips. ? Soft tissues:? No suspicious soft tissue calcifications or masses.? Multiple surgical clips are seen in the pelvis left thigh.? Vasculature has atherosclerotic calcifications. ? IMPRESSION:? No acute abnormality. ? ? Dictated by: Wallace Bland M.D. on 10/04/2021 at 11:57 ? ? [facility] Narrative Medical decision making narrative: 81-year-old gentleman who fell landing on his left hip last night was able to walk but having increasing pain with lifting the leg. He typically uses a cane and has some mobility issues related to that leg due to chronic knee pain and thigh atrophy on that side. X-rays are unremarkable. He is able to get up and does not have significant tenderness with bearing weight. The pain truly is with moving his foot forward and lifting his thigh. This is much more consistent with acute muscle strain. He is given a walker which certainly helps with overall mobility and stability. There is no evidence of point tenderness along his thoracic or lumbar spine to suggest new compression fracture. With his lack of pain in weight-bearing IM far less suspicious of fracture at this time. He is interested in minimal pain medication but would like to have something stronger than Tylenol so that he is at least able to sleep. He does typically have diarrhea but we did review constipation as a side effect of narcotics. At this point he is safe to be discharged home with his walker and will ask him to follow-up with his primary care physician if he feels that his injuries are not improving within the next couple of days. He may well benefit from physical therapy. Discharge Plan Departure Patient Disposition: Home Clinical Impression: Fall from stairs Strain of flexor muscle of left hip Qualifiers: Encounter type: initial encounter Qualified Code(s): S76.012A - Strain of muscle, fascia and tendon of left hip, initial encounter Instructions: DI for Hip Pain Activity Restrictions/Additional Instructions: Thank you for coming in today Your x-rays do not show a hip, pelvis or lumbar spine fracture. The fact that you are able to bear weight on that side is reassuring. The fact that is still hurting strongly suggests that you still injured some of the soft tissue. I suspect that you have strained your hip flexor. Please use the walker for stability. For medium pain you can use Tylenol and for severe pain you can use Percocet which is Tylenol plus oxycodone. Oxycodone is a narcotic and narcotics do increase the risk of falling and increase the risk of constipation. Please make sure you are using stool softeners if you choose to use the pain medication. If you are still having pain by the end of the week, I would encourage you to follow-up with your primary care physician. You may benefit from outpatient physical therapy. Please continue all of your usual medications as well as your scheduled dialysis appointments. Prescriptions: New oxycodone-acetaminophen 5-325 mg tablet 1 tab PO Q6H PRN (Reason: pain) Qty: 10 0RF No Action rosuvastatin 20 mg tablet PO DAILY 0RF carbidopa-levodopa 25-100 mg tablet PO BEDTIME 0RF furosemide 80 mg tablet PO DAILY 0RF potassium chloride 20 mEq tablet,ER particles/crystals PO 0RF allopurinol 300 mg tablet PO 0RF carvedilol 25 mg tablet PO 0RF pramipexole 0.5 mg tablet PO 0RF calcitonin (salmon) 200 unit/actuation spray,non-aerosol 1 spray intranasal (ALT) DAILY 60 Days Qty: 3.7 1RF Rx Instructions: sacral fx Referrals: Srikanth Delgado MD [Primary Care Provider] -
[2021-10-04 14:06] VITALS: BP 166/74; PULSE 68; RESP 18; O2SAT 97
== END 2021-10-04 14:32 | disposition home or self-care (01) ==
PROVIDERS: Emergency Provider Emergency Medicine; Family Provider Physician Assistant; PCP Internal Medicine
DX: S76.012A Strain of muscle, fascia and tendon of left hip, initial encounter (principal); F17.200 Nicotine dependence, unspecified, uncomplicated; W10.9XXA Fall (on) (from) unspecified stairs and steps, initial encounter; Y93.89 Activity, other specified; Y92.89 Other specified places as the place of occurrence of the external cause
CPT/HCPCS: 73502; 99283

== ENCOUNTER 2021-10-05 06:48 | Emergency (ER) | payer MEDICARE, SELFPAY ==
[2021-10-05 06:58] VITALS: BP 202/89; PULSE 88; RESP 22; O2SAT 97; BMI 20.7
--- NOTE | 2021-10-05 07:02 | ED.MALEGU ---
HPI - Male Genitourinary General Chief complaint: Urogenital-Male Stated complaint: blot clot urine and cant pee Time Seen by Provider: 10/05/21 06:49 Source: patient Mode of arrival: Wheelchair History of Present Illness HPI Narrative: 81-year-old male daily smoker with history of end-stage renal disease on hemodialysis (Mondays, Wednesdays, Fridays) presents with a chief complaint of difficulty urinating and the passage of blood clots. He was seen and thoroughly evaluated yesterday after stepping awkwardly off a porch and having pain with ambulation, imaging was unremarkable and there is no evidence of fracture or dislocation. He was discharged home on pain meds. He is otherwise well and free of complaint. He did not take any the pain medications last night, he denies fever or chills, he denies dizziness, weakness or lightheadedness, he denies any shortness of breath or significant fatigue. He states that he has had multiple occurrences of gross hematuria such as this and has been seen by urology and scoped, states that they were planning on doing another 1 shortly. Related Data Home Medications Medication Instructions Recorded Confirmed allopurinol 300 mg tablet 300 mg PO DAILY 12/05/19 10/05/21 carbidopa 25 mg-levodopa 100 mg tab PO BEDTIME tab 12/05/19 03/10/21 tablet carvedilol 25 mg tablet 25 mg PO BID 12/05/19 10/05/21 furosemide 80 mg tablet 80 mg PO BID tab 12/05/19 10/05/21 pramipexole 0.5 mg tablet mg PO 12/05/19 03/10/21 rosuvastatin 20 mg tablet 20 mg PO DAILY tab 12/05/19 10/05/21 losartan 25 mg tablet 12.5 mg PO DAILY 10/05/21 10/05/21 omeprazole 20 mg delayed 20 mg PO DAILY 10/05/21 10/05/21 release,disintegrating tablet potassium chloride 10 mEq 10 meq PO DAILY 10/05/21 10/05/21 tablet,extended release Allergies Allergy/AdvReac Type Severity Reaction Status Date / Time No Known Drug Allergies Allergy Verified 10/05/21 06:58 Review of Systems Review of Systems Narrative: GENERAL: Denies chills, fatigue, malaise, fever, sweats. HEENT: Denies sinus pain, ear pain, sore throat, difficulty swallowing, dizziness. RESPIRATORY: Denies dyspnea, cough, wheezing, hemoptysis, sputum. CARDIOVASCULAR: Denies chest pain, palpitations, orthopnea, edema, GASTROINTESTINAL: Denies nausea, vomiting, abdominal pain, diarrhea, constipation, melena. : See HPI MUSCULOSKELETAL: denies weakness, joint pain, or bony pain SKIN: Denies rash, skin lesions, or other NEUROLOGIC: Denies weakness, headache, numbness, change in speech, confusion, seizures, incoordination. PSYCHIATRIC: No concerning psychosocial issues. 12 point review of systems is negative except for those stated above Patient History Medical History Compression fracture of L4 vertebra End stage renal disease Gross hematuria Hemodialysis access, fistula mature Hemodialysis status Herniated nucleus pulposus, L4-5 History of prostate cancer HTN (hypertension) Hx of coronary artery disease Polycystic kidney disease Renal failure Restless leg syndrome Right hamstring muscle strain Squamous cell cancer of scalp and skin of neck Surgical History H/O hernia repair History of surgery of head Hx of prostatectomy Hx of right coronary artery stent placement Family History Father Stroke Mother Heart disease Brother Diabetes mellitus Kidney disease Sister Diabetes mellitus Anemia Social History Smoking Status: Current every day smoker Smoking Status: Current every day smoker Substance Use Type: does not use Exam Narrative Exam Narrative: GENERAL: [81] year old patient appears stated age. Well-developed patient, in mild distress. HEAD: Atraumatic. Normocephalic. EYES: No conjunctival pallor Pupils equal round and reactive. Extraocular motions intact. No scleral icterus. No injection or drainage. ENT: Nose without bleeding, purulent drainage. Throat without erythema, tonsillar hypertrophy or exudate. Airway patent. NECK: Trachea midline. Non tender CARDIOVASCULAR: Regular rate and rhythm without murmurs, gallops, or rubs. RESPIRATORY: Clear to auscultation. Breath sounds equal bilaterally. No wheezes, rales, or rhonchi. GASTROINTESTINAL: Abdomen soft, non-tender, nondistended. EXTREMITIES: No edema or joint tenderness. No significant pain or swelling. Left upper extremity fistula with palpable thrill BACK: Nontender without deformity or crepitance. No flank tenderness. NEURO: AOx3. SKIN: No rash or erythema of visible areas Initial Vital Signs Initial Vital Signs: Vital Signs Pulse Rate 88 10/05/21 06:58 Respiratory Rate 22 10/05/21 06:58 Blood Pressure 202/89 H 10/05/21 06:58 Pulse Oximetry 97 10/05/21 06:58 Course Course Course Narrative: Kauffman catheter placed, 14 [place], mikhail blood noted, sent to lab Orders Ordered: Discontinued Medications Lidocaine HCl (Lidocaine 2% (Glydo) 6 Ml Gel) 6 ml TOP NOW ONE Stop: 10/05/21 06:56 Last Admin: 10/05/21 07:25 Dose: 6 ml Documented by: MARCELINA Consultations Consultation #1: discussed with [employer] professional urology ([place]). He recommends placement and maintenance of Kauffman catheter with return precautions. Has related information regarding renal cell mass to front office for assistance in further evaluation and treatment down the line Consultation #2: Discussed with Nephrology on-call for Dr. Bishop ([facility] Recommends discharge and POV transport for regularly scheduled hemodialysis. They will also assist in closely following in further evaluating the renal cell mass and gross hematuria Vital Signs Vital signs: Vital Signs - 8 hr 10/05/21 10:51 Pulse Rate 81 Respiratory Rate 20 Blood Pressure 161/81 H Pulse Oximetry 94 MDM - Male Genitourinary Lab Data Result diagrams: 10/05/21 08:15 10/05/21 08:15 Labs: Lab Results 10/05/21 10/05/21 10/05/21 Range/Units 07:40 08:00 08:15 WBC 9.9 (4.5-11.0) X10^3/uL RBC 3.90 L (4.5-5.9) X10^6/uL Hgb 10.0 L (13.5-17.5) g/dL Hct 30.7 L (41-53) % MCV 78.7 L (80-100) fL MCH 25.6 L (26-34) PG MCHC 32.5 (30-36) % RDW 16.0 H (11.6-14.8) % Plt Count 127 L (150-400) X10^3/uL Neut % (Auto) 86.6 H (50-75) % Lymph % (Auto) 3.1 L (25-40) % [place] % (Auto) 8.7 (3-14) % Eos % (Auto) 1.1 L (2-4) % Baso % (Auto) 0.5 (0-2) % Neut # (Auto) 8600 H (4257-5828) /uL Lymph # (Auto) 300 L (6592-2550) /uL [place] # (Auto) 900 (0-900) /uL Eos # (Auto) 100 (0-450) /uL Baso # (Auto) 0 (0-100) /uL Sodium (137-145) mmol/L Potassium (3.4-5.1) mmol/L Chloride (98-107) mmol/L Carbon Dioxide (22-32) mmol/L BUN (9-20) mg/dL Creatinine (0.66-1.25) mg/dL Estimated GFR (>60) mL/min BUN/Creatinine Ratio (6-22) Glucose (80-110) mg/dL Calcium (8.4-10.2) mg/dL Urine Color Red Urine Appearance Other Urine pH 7.0 (4.5-8.0) Ur Specific [place] 1.015 (1.000-1.035) Urine Protein 3+ H (Negative) Urine Glucose (UA) Negative (Negative) g/dL Urine Ketones Negative (NEGATIVE) Urine Occult Blood 3+ H (Negative) Urine Nitrate Negative (Negative) Urine Bilirubin Negative (NEGATIVE) Urine Urobilinogen 0.2 (0.2) E.U./dL Ur Leukocyte Esterase 1+ H (NEGATIVE) Urine RBC >100/hpf H (0-5/HPF) Urine WBC 10-30/hpf H (0-5/HPF) Urine Bacteria None seen (None) Ur Culture Indicated? Specimen cultured Blood Type O Positive Antibody Screen Negative 10/05/21 Range/Units 08:15 WBC (4.5-11.0) X10^3/uL RBC (4.5-5.9) X10^6/uL Hgb (13.5-17.5) g/dL Hct (41-53) % MCV (80-100) fL MCH (26-34) PG MCHC (30-36) % RDW (11.6-14.8) % Plt Count (150-400) X10^3/uL Neut % (Auto) (50-75) % Lymph % (Auto) (25-40) % [place] % (Auto) (3-14) % Eos % (Auto) (2-4) % Baso % (Auto) (0-2) % Neut # (Auto) (7989-4611) /uL Lymph # (Auto) (5904-6426) /uL [place] # (Auto) (0-900) /uL Eos # (Auto) (0-450) /uL Baso # (Auto) (0-100) /uL Sodium 137 (137-145) mmol/L Potassium 4.3 (3.4-5.1) mmol/L Chloride 100 (98-107) mmol/L Carbon Dioxide 25 (22-32) mmol/L BUN 79 H (9-20) mg/dL Creatinine 6.75 H (0.66-1.25) mg/dL Estimated GFR 8 L (>60) mL/min BUN/Creatinine Ratio 11.7 (6-22) Glucose 107 (80-110) mg/dL Calcium 8.1 L (8.4-10.2) mg/dL Urine Color Urine Appearance Urine pH (4.5-8.0) Ur Specific [place] (1.000-1.035) Urine Protein (Negative) Urine Glucose (UA) (Negative) g/dL Urine Ketones (NEGATIVE) Urine Occult Blood (Negative) Urine Nitrate (Negative) Urine Bilirubin (NEGATIVE) Urine Urobilinogen (0.2) E.U./dL Ur Leukocyte Esterase (NEGATIVE) Urine RBC (0-5/HPF) Urine WBC (0-5/HPF) Urine Bacteria (None) Ur Culture Indicated? Blood Type Antibody Screen Imaging Data CT IVP: Radiologist's Impression: Chart Viewer Diagnostics Subcategory All Activity ??:?? All Time ??:?? All Subcategories Filter Laboratory Imaging Microbiology Pathology Blood Bank Tests Cardiovascular Other Specialty DATE TYPE STATUS REF RANGE/AUTHOR Hx Today 08:07 Abdomen/Pelvis CT Signed Vinicius Phillips 10/04/21 11:36 Hip X-Ray Signed Wallace Bland 09/22/21 15:29 Chest X-Ray Signed Apple Jenkins 02/24/21 14:24 Abdomen/Pelvis CT Signed Mason Dutton 11/15/19 13:04 Lumbar Spine X-Ray Signed Michael Cannon 10/04/19 00:00 Lumbar Spine MRI Signed Vinicius Phillips 11/08/17 00:[address] Signed Charlie Escoto 11/08/17 00:[address] Signed Charlie Escoto Jr, John D ED 81, M?1940 MRN#? [id number] DEP ER,?Main ED??? 175.26cm 63.503kg BMI: 20.7kg/m? Urogenital-Male Acc#? [id number] Resus Status Not Ordered No Hx Avail Special Indicators No Data to Display Home Meds Not Confirmed Prescription Monitoring Program MEDICATIONS (INSTRUCTIONS) LAST TAKEN Active allopurinol 300 mg tablet 300 mgPODAILY Unknown ??carbidopa 25 mg-levodopa 100 mg tablet ??tabPOBEDTIME?tab Unknown carvedilol 25 mg tablet 25 mgPOBID Unknown furosemide 80 mg tablet 80 mgPOBID?tab Unknown losartan 12.5 mgPODAILY Unknown omeprazole 20 mgPODAILY Unknown potassium chloride 10 meqPODAILY Unknown ??pramipexole 0.5 mg tablet ??mgPO rosuvastatin 20 mg tablet 20 mgPODAILY?tab Unknown Allergies No Known Drug Allergies Problems ? ONSET Strain of flexor muscle of left hip Fall from stairs Left renal mass Polycystic kidney disease Hx of prostatectomy Hemodialysis access, fistula mature Hemodialysis status End stage renal disease Gross hematuria History of prostate cancer Restless leg syndrome Right hamstring muscle strain Squamous cell cancer of scalp and skin of neck Renal failure Herniated nucleus pulposus, L4-5 Compression fracture of L4 vertebra Vital Signs Today 10:51 BP 161/81?H Pulse 81? Resp 20? O2 Sat 94? Delivery Room Air? Diagnostics Reports Jerzy Briscoe Jr??81??M??1940 ? Allergy/Adv: No Known Drug Allergies Close Abdomen/Pelvis CT (Signed) Vinicius Phillips - 10/05/21 Hip X-Ray (Signed) Wallace Bland - 10/04/21 Chest X-Ray (Signed) Apple Jenkins - 09/22/21 Abdomen/Pelvis CT (Signed) Mason Dutton - 02/24/21 Lumbar Spine X-Ray (Signed) Michael Cannon - 11/15/19 Lumbar Spine MRI (Signed) Dameon Phillipsashley - 10/04/[address] (Signed) Charlie Escoto - 11/08/[address] (Signed) Charlie Escoto - 11/08/17 Launch?Image [address] [address] [address] Scan Report Signed Patient: Jerzy Briscoe Jr MR#: [id number] : 1940 Acct:[id number] Age/Sex: 81 / M Date of Service: 10/05/21 Loc: ED Accession Number: [id number] ?? Procedure: CT abdomen pelvis wo/w con Ordering Provider: Juan Sands D.O. PROCEDURE:? CT ABDOMEN PELVIS WO/W CON ? INDICATIONS:? pain, gross hematuria, dialysis patient ? TECHNIQUE:? Optional 5 mm thick noncontrast images acquired from the diaphragm to the symphysis pubis.? After the administration of intravenous contrast, 5 mm thick images acquired from the diaphragm to the symphysis pubis after a 10-minute delay.? 2 mm thick coronal and sagittal reformats were then performed of the kidneys and ureters.? For radiation dose reduction, the following was used:? automated exposure control, adjustment of mA and/or kV according to patient size.? ? COMPARISON:? [facility], CT, CT ABDOMEN PELVIS WO CON, 02/24/2021, 14:22. ? FINDINGS:? Image quality:? Excellent.? ? Lung bases:? Lung bases are clear.? Heart size is normal.? Calcification of the coronary vasculature. ? Urinary system:? Multiple renal cysts are present bilaterally, as before.? Several of these are large and several demonstrate calcified peripheries and septi.? There is a partially calcified enhancing mass within the left interpolar/superior pole kidney measuring roughly 68 mm.? Multiple indeterminate density rounded foci within the bilateral kidneys are present, predominantly inferiorly.? There is mild left hydronephrosis.? There is moderate high density material within the left intrarenal collecting system, consistent with hemorrhage.? Urinary bladder is decompressed.? Kauffman catheter is present. ? Other solid organs:? Liver is normal in size and enhancement.? Gallbladder is grossly unremarkable .? Biliary system is non dilated.? There are several calcifications within the pancreatic body and tail.? There is mild to moderate pancreatic ductal dilatation with a maximal short axis diameter of roughly 6 mm within the body/tail junction.? Spleen is normal in size and enhancement.? No adrenal nodules.? ? Peritoneum and bowel:? Bowel loops demonstrate normal wall thickness and caliber.? No free fluid or air.? ? Nodes and vessels:? No retroperitoneal or mesenteric adenopathy by size criteria.? Aorta and inferior vena cava are normal in size.? ? Abdominal wall:? No ventral hernias.? ? Pelvis:? No pathologic free pelvic fluid.? There is a fluid containing left inguinal hernia. ? Bones:? No suspicious bony lesions.? Moderate chronic L4 compression fracture.? No acute vertebral body compression fractures.? IMPRESSION:? 1. Polycystic kidney disease bilaterally. 2. Left renal malignancy with associated hematuria. 3. Multiple indeterminate density foci within the bilateral kidneys. 4. Pancreatic ductal dilatation and calcification.? Findings may be related to chronic pancreatitis sequelae and resulting strictures.? ERCP is recommended to assess for malignancy. 5. Coronary artery disease.? ? Dictated by: Vinicius Phillips M.D. on 10/05/2021 at 9:01 ? ? Approved by: Vinicius Phillips M.D. on 10/05/2021 at 9:08 ? MDM Narrative Medical decision making narrative: Patient presents with difficulty urinating and gross blood in his urine. He is hemodynamically stable an H&H is stable. Kauffman catheter is place which is draining, CT IVP suggests mass in left kidney is likely cancers. Patient given extensive return precautions, encouraged to proceed directly to today's regularly scheduled hemodialysis. He and understand that both Nephrology and Urology grooves will be in close contact regarding how to most appropriately workup this new discovery. He is given extensive return precautions and questions been answered to his apparent satisfaction Discharge Plan Departure Patient Disposition: Home Clinical Impression: Gross hematuria, Left renal mass Instructions: DI for Hematuria Activity Restrictions/Additional Instructions: *You have been diagnosed with [gross hematuria, likely related to a newly discovered mass in your left kidney, which as we discussed is concerning for malignancy. Have been in touch with your food court team member who recommends you go directly to your previously scheduled dialysis appointment today, leave the Kauffman catheter in and they will help evaluate the kidney mass in short order. *What to do: *Please continue to take your regular medications as directed. [ ] New medication prescriptions sent to your pharmacy: [ ] [ ] New medication written as a paper prescription [ x] No new medications given *If you do not have a primary care provider please contact the [facility] Resource line at [phone]. They will ask some questions about your medical history and help get you set up with a doctor in the community. *Return to Emergency Department if you should have any new, worsening or concerning symptoms, such as [fever greater than 101 F, shaking chills, worsening pain, persistent vomiting or other bothersome symptoms] Prescriptions: No Action potassium chloride 10 mEq tablet extended release 10 meq PO DAILY 0RF Label Comments: TAKE 1 TABLET BY MOUTH ONCE DAILY losartan 25 mg tablet 12.5 mg PO DAILY 0RF Label Comments: TAKE 1/2 (ONE-HALF) TABLET BY MOUTH ONCE DAILY omeprazole 20 mg Tablet,Disintegrat, Delay Rel 20 mg PO DAILY 0RF rosuvastatin 20 mg tablet 20 mg PO DAILY 0RF carbidopa-levodopa 25-100 mg tablet PO BEDTIME 0RF furosemide 80 mg tablet 80 mg PO BID 0RF allopurinol 300 mg tablet 300 mg PO DAILY 0RF carvedilol 25 mg tablet 25 mg PO BID 0RF pramipexole 0.5 mg tablet PO 0RF Referrals: Srikanth Delgado MD [Primary Care Provider] - Yonatan Bishop MD [Physician] -
[2021-10-05] MEDS: LIDOCAINE 2% (GLYDO) 6 ML GEL TOP (07:25)
--- NOTE | 2021-10-05 07:48 | PC.NURSE ---
Dr notified of Dark red gross hematuria in urine. 50ml output post catheter insertion. Will need a coude tipped 3 way for irrigation. Consulting with materials.
[2021-10-05 07:55] LABS: Appearance Urine UA OTHER; Bilirubin Urine UA NEGATIVE (NEGATIVE); Color Urine UA RED; Glucose Urine UA NEGATIVE (Negative); Ketones Urine UA NEGATIVE (NEGATIVE); Leukocyte Esterase Urine UA 1+ (NEGATIVE); Nitrite Urine UA NEGATIVE (Negative); Occult Blood Urine UA 3+ (Negative); Protein Urine UA 3+ (Negative); Specific Gravity Urine UA 1.015 (1.000-1.035); Urobilinogen Urine UA 0.2 E.U./dL (0.2)
[2021-10-05 07:56] LABS: Bacteria Urine None Seen; RBC Urine >100/HPF (0-5/HPF); WBC Urine 10-30/HPF (0-5/HPF)
[2021-10-05 07:57] LABS: Culture Indicated Urine Specimen Cultured
--- NOTE | 2021-10-05 08:07 | DI.CT.S_ITS ---
PROCEDURE: CT ABDOMEN PELVIS WO/W CON INDICATIONS: pain, gross hematuria, dialysis patient TECHNIQUE: Optional 5 mm thick noncontrast images acquired from the diaphragm to the symphysis pubis. After the administration of intravenous contrast, 5 mm thick images acquired from the diaphragm to the symphysis pubis after a 10-minute delay. 2 mm thick coronal and sagittal reformats were then performed of the kidneys and ureters. For radiation dose reduction, the following was used: automated exposure control, adjustment of mA and/or kV according to patient size. COMPARISON: , CT, CT ABDOMEN PELVIS WO CON, 02/24/2021, 14:22. FINDINGS: Image quality: Excellent. Lung bases: Lung bases are clear. Heart size is normal. Calcification of the coronary vasculature. Urinary system: Multiple renal cysts are present bilaterally, as before. Several of these are large and several demonstrate calcified peripheries and septi. There is a partially calcified enhancing mass within the left interpolar/superior pole kidney measuring roughly 68 mm. Multiple indeterminate density rounded foci within the bilateral kidneys are present, predominantly inferiorly. There is mild left hydronephrosis. There is moderate high density material within the left intrarenal collecting system, consistent with hemorrhage. Urinary bladder is decompressed. Kauffman catheter is present. Other solid organs: Liver is normal in size and enhancement. Gallbladder is grossly unremarkable . Biliary system is non dilated. There are several calcifications within the pancreatic body and tail. There is mild to moderate pancreatic ductal dilatation with a maximal short axis diameter of roughly 6 mm within the body/tail junction. Spleen is normal in size and enhancement. No adrenal nodules. Peritoneum and bowel: Bowel loops demonstrate normal wall thickness and caliber. No free fluid or air. Nodes and vessels: No retroperitoneal or mesenteric adenopathy by size criteria. Aorta and inferior vena cava are normal in size. Abdominal wall: No ventral hernias. Pelvis: No pathologic free pelvic fluid. There is a fluid containing left inguinal hernia. Bones: No suspicious bony lesions. Moderate chronic L4 compression fracture. No acute vertebral body compression fractures. IMPRESSION: 1. Polycystic kidney disease bilaterally. 2. Left renal malignancy with associated hematuria. 3. Multiple indeterminate density foci within the bilateral kidneys. 4. Pancreatic ductal dilatation and calcification. Findings may be related to chronic pancreatitis sequelae and resulting strictures. ERCP is recommended to assess for malignancy. 5. Coronary artery disease. Dictated by: Vinicius Phillips M.D. on 10/05/2021 at 9:01 Approved by: Vinicius Phillips M.D. on 10/05/2021 at 9:08
[2021-10-05 08:39] LABS: Add Manual Diff / Slide Review NO; Basophils Absolute Auto 0 /uL (0-100); Basophils Percent Auto 0.5 % (0-2); Eosinophils Absolute Auto 100 /uL (0-450); Eosinophils Percent Auto 1.1 % (2-4); Hematocrit 30.7 % (41-53); Lymphocytes Absolute Auto 300 /uL (1100-4500); Lymphocytes Percent Auto 3.1 % (25-40); Mean Corpuscular HGB Conc 32.5 % (30-36); Mean Corpuscular Hemoglobin 25.6 PG (26-34); Mean Corpuscular Volume 78.7 fL (80-100); Monocytes Absolute Auto 900 /uL (0-900); Monocytes Percent Auto 8.7 % (3-14); Neutrophils Absolute Auto 8600 /uL (1500-7000); Neutrophils Percent Auto 86.6 % (50-75); Platelet Count 127 X10^3/uL (150-400); White Blood Cell Count 9.9 X10^3/uL (4.5-11.0)
[2021-10-05 08:56] LABS: BUN Creatinine Ratio 11.7 (6-22); Blood Urea Nitrogen 79 mg/dL (9-20); Calcium 8.1 mg/dL (8.4-10.2); Carbon Dioxide 25 mmol/L (22-32); Chloride 100 mmol/L (98-107); Estimated Glomerular Filt Rate 8 mL/min (>60); Glucose 107 mg/dL (80-110); HEMOLYSIS < 15 (0-50); Potassium 4.3 mmol/L (3.4-5.1); Sodium 137 mmol/L (137-145)
[2021-10-05 10:51] VITALS: BP 161/81; PULSE 81; RESP 20; O2SAT 94
== END 2021-10-05 10:51 | disposition home or self-care (01) ==
PROVIDERS: Emergency Provider Emergency Medicine; Family Provider Physician Assistant; PCP Internal Medicine
DX: R31.9 Hematuria, unspecified (principal); N28.89 Other specified disorders of kidney and ureter; R33.9 Retention of urine, unspecified; F17.200 Nicotine dependence, unspecified, uncomplicated; Z46.6 Encounter for fitting and adjustment of urinary device
CPT/HCPCS: 36415; 51702; 51798; 74178; 80048; 81001; 85025; 86850; 86900; 86901; 87086; 99284; Q9967

== ENCOUNTER 2021-10-07 06:48 | Emergency (ER) | payer MEDICARE, SELFPAY ==
[2021-10-07 06:59] VITALS: BP 176/81; PULSE 82; RESP 20; TEMP 36.2; O2SAT 98; BMI 20.7
--- NOTE | 2021-10-07 07:03 | PC.NURSE ---
pt recently had a catheter placed d/t being unable to urinate, pt has been having bloody urine, this am pt noticed he was leaking around the catheter instead of draining into his bag
--- NOTE | 2021-10-07 07:28 | ED.GENADULT ---
HPI - General Adult General Chief complaint: Urogenital-Male Stated complaint: blocked cather Time Seen by Provider: 10/07/21 06:59 Source: patient and family Mode of arrival: Wheelchair History of Present Illness HPI narrative: Patient is a 81-year-old male. Does have a left-sided renal mass that was diagnosed in the past. He is under the care of Nephrology and Urology. He does get dialysis 3 times a week. His next dialysis treatment is later today. He had a catheter placed here in the emergency department a couple days ago after having hematuria. He returns to the emergency department today because of what he thinks is a block catheter. Overnight he had a sensation like he needed to urinate but nothing was coming out of the catheter. He then tried to urinate and came around the catheter. He states he feels ?full ?in his abdomen. No fevers. He is scheduled to see a ?specialist ?because of the mass in the next couple days. Related Data Home Medications Medication Instructions Recorded Confirmed allopurinol 300 mg tablet 300 mg PO DAILY 12/05/19 10/05/21 carbidopa 25 mg-levodopa 100 mg tab PO BEDTIME tab 12/05/19 03/10/21 tablet carvedilol 25 mg tablet 25 mg PO BID 12/05/19 10/05/21 furosemide 80 mg tablet 80 mg PO BID tab 12/05/19 10/05/21 pramipexole 0.5 mg tablet mg PO 12/05/19 03/10/21 rosuvastatin 20 mg tablet 20 mg PO DAILY tab 12/05/19 10/05/21 losartan 25 mg tablet 12.5 mg PO DAILY 10/05/21 10/05/21 omeprazole 20 mg delayed 20 mg PO DAILY 10/05/21 10/05/21 release,disintegrating tablet potassium chloride 10 mEq 10 meq PO DAILY 10/05/21 10/05/21 tablet,extended release Allergies Allergy/AdvReac Type Severity Reaction Status Date / Time No Known Drug Allergies Allergy Verified 10/05/21 06:58 Review of Systems Constitutional Comments: No fevers Gastrointestinal Comments: Fullness and abdomen Genitourinary Genitourinary: Reports system reviewed and no additional complaints, except as documented and Reports as per HPI Musculoskeletal Comments: Pulled muscle on left leg from prior fall. This is not new today Hematologic/Lymphatic On Anticoagulants: No Patient History Medical History Compression fracture of L4 vertebra End stage renal disease Gross hematuria Hemodialysis access, fistula mature Hemodialysis status Herniated nucleus pulposus, L4-5 History of prostate cancer HTN (hypertension) Hx of coronary artery disease Polycystic kidney disease Renal failure Restless leg syndrome Right hamstring muscle strain Squamous cell cancer of scalp and skin of neck Surgical History H/O hernia repair History of surgery of head Hx of prostatectomy Hx of right coronary artery stent placement Family History Father Stroke Mother Heart disease Brother Diabetes mellitus Kidney disease Sister Diabetes mellitus Anemia Social History Smoking Status: Current every day smoker Smoking Status: Current every day smoker Substance Use Type: does not use Exam Initial Vital Signs Initial Vital Signs: Vital Signs Temperature 97.2 F L 10/07/21 06:59 Pulse Rate 82 10/07/21 06:59 Respiratory Rate 20 10/07/21 06:59 Blood Pressure 176/81 H 10/07/21 06:59 Pulse Oximetry 98 10/07/21 06:59 HENMT Head: normal to inspection GI Inspection: normal to inspection Palpation: soft, No firm and No tender Other: Kauffman catheter in place with blood in the back. Patient is circumcised. Skin General: no rashes or lesions noted Neuro General: patient alert and moves all extremities Extrem General: normal to inspection and capillary refill normal Psych Appearance: grossly normal and well kempt Course Vital Signs Vital signs: Vital Signs - 8 hr 10/07/21 06:59 Temperature 97.2 F L Pulse Rate 82 Respiratory Rate 20 Blood Pressure 176/81 H Pulse Oximetry 98 Medical Decision Making MDM Narrative Medical decision making narrative: We were able to flush the catheter. Patient states that he only urinates twice a day anyway because of his dialysis. He is scheduled for dialysis later today. We will have him follow-up with his specialist. He was given return precautions. He expressed understanding and agreement. Discharge Plan Departure Patient Disposition: Home Clinical Impression: Hematuria Instructions: How to Care for Your Kauffman Catheter -- Male, DI for Hematuria Activity Restrictions/Additional Instructions: I do recommend that you continue to keep all of your scheduled medical appointments especially your dialysis later today. Return to the emergency department for any new or worsening symptoms. Prescriptions: No Action potassium chloride 10 mEq tablet extended release 10 meq PO DAILY 0RF Label Comments: TAKE 1 TABLET BY MOUTH ONCE DAILY losartan 25 mg tablet 12.5 mg PO DAILY 0RF Label Comments: TAKE 1/2 (ONE-HALF) TABLET BY MOUTH ONCE DAILY omeprazole 20 mg Tablet,Disintegrat, Delay Rel 20 mg PO DAILY 0RF rosuvastatin 20 mg tablet 20 mg PO DAILY 0RF carbidopa-levodopa 25-100 mg tablet PO BEDTIME 0RF furosemide 80 mg tablet 80 mg PO BID 0RF allopurinol 300 mg tablet 300 mg PO DAILY 0RF carvedilol 25 mg tablet 25 mg PO BID 0RF pramipexole 0.5 mg tablet PO 0RF Referrals: Srikanth Delgado MD [Primary Care Provider] -
[2021-10-07 08:34] VITALS: BP 178/81; PULSE 77; RESP 16; O2SAT 100
== END 2021-10-07 08:35 | disposition home or self-care (01) ==
PROVIDERS: Emergency Provider Emergency Medicine; Family Provider Physician Assistant; PCP Internal Medicine
DX: T83.091A Other mechanical complication of indwelling urethral catheter, initial encounter (principal); R31.9 Hematuria, unspecified
CPT/HCPCS: 99281

== ENCOUNTER → 2021-10-13 11:14 | Outpatient (CLI) | payer MEDICARE, SELFPAY ==
--- NOTE | 2021-10-13 | DI.CT.S_ITS ---
PROCEDURE: CT PEL WO CON INDICATIONS: LEFT HIP PAIN, FALL TECHNIQUE: Noncontrast 3 mm axial sections acquired through the bony pelvis, with coronal and sagittal reformatting. COMPARISON: [facility], CT, CT ABDOMEN PELVIS WO/W CON, 10/05/2021, 8:20. FINDINGS: Image quality: Excellent. Bones: Minimal displaced fracture of the left subcapital femur (6-38). The remaining visualized osseous structures appear maintained. Remote fracture deformity of the left ischium. Soft tissues: Polycystic change of the kidneys as previously demonstrated . Diffuse wall thickening of the urinary bladder. Left inguinal hernia with fluid extending into the hernia sac. Left hip joint effusion. New line calcified atheromatous change of the aorta. Sigmoid diverticulosis. New line small fat containing periumbilical hernia. Anasarca. IMPRESSION: Minimal displaced fracture of the left subcapital femur. Dictated by: Mj Massey M.D. on 10/13/2021 at 14:48 Approved by: Mj Massey M.D. on 10/13/2021 at 14:52
== END ==
PROVIDERS: Family Provider Physician Assistant; PCP Internal Medicine; Referring Provider Internal Medicine; Visit Provider Internal Medicine
DX: S72.012A Unspecified intracapsular fracture of left femur, initial encounter for closed fracture (principal); M25.552 Pain in left hip; W19.XXXA Unspecified fall, initial encounter
CPT/HCPCS: 72192

== ENCOUNTER → 2022-01-30 12:37 | Outpatient (CLI) | payer MEDICARE, SELFPAY ==
--- NOTE | 2022-01-30 | DI.CT.S_ITS ---
PROCEDURE: CT ABDOMEN PELVIS WO CON INDICATIONS: LEFT RENAL MASS TECHNIQUE: After the administration of oral contrast, 5 mm thick sections acquired from the diaphragms to the symphysis. 5 mm coronal and sagittal reformats were performed. For radiation dose reduction, the following was used: automated exposure control, adjustment of mA and/or kV according to patient size. COMPARISON: [facility], CT, CT ABDOMEN PELVIS WO/W CON, 10/05/2021, 8:20. FINDINGS: Lower thorax: The lung bases are clear. Heart size normal. No hiatal hernia. Dense coronary artery vascular calcification Liver: Large right hepatic cyst measures up to 19.7 cm, similar prior. Biliary system: Trace calcified stones noted layering dependently in the lumen the gallbladder Pancreas: Unremarkable without mass or inflammation evident. Spleen: Normal in size and density. Adrenals: Normal morphology and density. Reproductive system: Unremarkable as visualized. Urinary system: Both kidneys are massively distorted with large renal cysts, similar prior capsular calcifications again noted particularly on the right. Evaluation is limited without contrast. Several hyperdense cysts are noted, similar prior There is suggestion of mass lesion in the distorted left hilum measuring 6.8 x 4.3 cm, similar prior exam Gastrointestinal system: The bowel is unremarkable without evidence of bowel obstruction or inflammation. The stomach appears unremarkable. Appendix: No findings to suggest acute appendicitis. Peritoneal spaces: No mesenteric or retroperitoneal adenopathy. No free air. No free fluid. Vasculature: The IVC, aorta and iliac vasculature are unremarkable. Abdominal wall: Abdominal wall intact without evidence of ventral or inguinal hernias. Musculoskeletal: Normal bone mineralization. No acute fractures. IMPRESSION: 1. Hepatic cysts and massive polycystic kidney disease, similar to the prior exam. 2. Stable left renal mass lesion. 3. Dense atherosclerotic vascular calcification Approved by: Rufus Ward M.D. on 01/30/2022 at 15:08
== END ==
PROVIDERS: Family Provider Physician Assistant; PCP Internal Medicine; Referring Provider Internal Medicine; Visit Provider Internal Medicine
DX: N28.89 Other specified disorders of kidney and ureter (principal); K76.89 Other specified diseases of liver; Q61.3 Polycystic kidney, unspecified; I25.10 Atherosclerotic heart disease of native coronary artery without angina pectoris
CPT/HCPCS: 74176

== ENCOUNTER → 2022-04-29 14:35 | Outpatient (CLI) | payer MEDICARE, SELFPAY ==
--- NOTE | 2022-04-29 | DI.RAD.S_ITS ---
PROCEDURE: XR HIP W PEL IF DONE RT 2V INDICATIONS: RIGHT HIP PAIN TECHNIQUE: AP pelvis and lateral view of the right hip acquired. COMPARISON: [facility], CT, CT ABDOMEN PELVIS WO CON, 01/30/2022, 13:42. [facility], CR, XR HIP W PEL IF DONE LT 2V, 10/04/2021, 11:26. [facility], CR, XR PELVIS WITH LATERAL HIP LEFT, 11/24/2021, 11:17. FINDINGS: Bones: Patient is status post left hip arthroplasty, with hardware components in expected positions. The hip joint appears congruent. The visualized bony structures appear intact. There is moderate right hip axial joint space narrowing with mild periarticular osteophyte formation. Soft tissues: Overlying postoperative changes are noted. No suspicious soft tissue densities. Vascular calcifications indicate atherosclerosis. Multiple pelvic surgical clips. Peripherally calcified mass within the right lower quadrant related to multiple large renal cyst with calcification. IMPRESSION: 1. Stable appearance of left hip arthroplasty which is incompletely evaluated. 2. Moderate right hip joint degeneration similar prior examination. Dictated by: [facility] Interpreted: Chad Aquino MD on 04/29/2022 at 16:10 Approved by: Chad Aquino M.D. on 04/29/2022 at 17:11
== END ==
PROVIDERS: Family Provider Physician Assistant; PCP Internal Medicine; Referring Provider Internal Medicine; Visit Provider Internal Medicine
DX: M16.11 Unilateral primary osteoarthritis, right hip (principal); M25.551 Pain in right hip; Z96.642 Presence of left artificial hip joint
CPT/HCPCS: 73502

== ENCOUNTER → 2022-09-23 09:09 | Outpatient (CLI) | payer MEDICARE, SELFPAY ==
--- NOTE | 2022-09-23 | DI.CT.S_ITS ---
PROCEDURE: CT CHEST WO CON INDICATIONS: Kidney Cancer Staging TECHNIQUE: Noncontrast 5 mm thick sections acquired from the pulmonary apices to the posterior costophrenic angles. 1 mm lung window, 5 mm thick coronal and sagittal and 7 mm axial MIP reformats were then acquired. For radiation dose reduction, the following was used: automated exposure control, adjustment of mA and/or kV according to patient size. COMPARISON: None. FINDINGS: Image quality: Excellent. Lungs and pleura: No acute air space opacities. No pleural effusions or pneumothorax. Central and peripheral airways are patent and normal in caliber. Mediastinum: Heart size is enlarged. No pericardial effusion. No mediastinal adenopathy by size criteria. Thoracic aorta and central pulmonary arteries are normal in size. Esophagus is normal in caliber. No hiatal hernia. Extensive coronary calcifications. Annular calcification mitral valve. Bones and chest wall: No suspicious bony lesions. No vertebral body compression fractures. No axillary or supraclavicular adenopathy by size criteria. Thyroid gland is unremarkable . Osteoporosis. Abdomen: Visualized upper abdominal solid organs and bowel loops appear normal in the absence of contrast. IMPRESSION: No evidence of metastatic disease in the chest. Dictated by: Elliott Peralta M.D. on 09/23/2022 at 11:35 Approved by: Elliott Peralta M.D. on 09/23/2022 at 11:37
--- NOTE | 2022-09-23 | DI.CT.S_ITS ---
PROCEDURE: CT IVP A/P W/WO INDICATIONS: Kidney Cancer Staging TECHNIQUE: Optional 5 mm thick noncontrast images acquired from the diaphragm to the symphysis pubis. After the administration of intravenous contrast, 5 mm thick images acquired from the diaphragm to the symphysis pubis after a 10-minute delay. 2 mm thick coronal and sagittal reformats were then performed of the kidneys and ureters. For radiation dose reduction, the following was used: automated exposure control, adjustment of mA and/or kV according to patient size. COMPARISON: None. FINDINGS: Image quality: Excellent. Lung bases: Lung bases are clear. Heart size is normal. Urinary system: Polycystic kidneys. There is a 5.2 x 7.5 x 5.2 centimeter cystic lesion with peripheral hypoattenuating components but irregular, isoattenuating components with enhancement (series 2, image 37). Nonenhancing hemorrhagic/proteinaceous cysts. No enhancing nodules seen within the additional renal cysts. Renal vein is widely patent. No retroperitoneal adenopathy. Other solid organs: Liver is normal in size and enhancement. Gallbladder is unremarkable . Biliary system is non dilated. Pancreas enhances normally. Spleen is normal in size and enhancement. No adrenal nodules. Peritoneum and bowel: Bowel loops demonstrate normal wall thickness and caliber. No free fluid or air. Nodes and vessels: No retroperitoneal or mesenteric adenopathy by size criteria. Aorta and inferior vena cava are normal in size. Abdominal wall: No ventral hernias. Pelvis: No pathologic free pelvic fluid. Small left inguinal inguinal hernia. Bones: No suspicious bony lesions. Chronic compression deformity of the L4 vertebral body without endplate retropulsion. Osteoporosis by Hounsfield units criteria. IMPRESSION: Cystic mass with enhancing components measuring 5.2 x 7.5 x 5.2 centimeters in the mid left kidney, concerning for renal cell carcinoma. No retroperitoneal adenopathy. Renal vein is widely patent. The mass is mostly endophytic, without invasion beyond the perirenal fascia. Dictated by: Elliott Peralta M.D. on 09/23/2022 at 11:25 Approved by: Elliott Peralta M.D. on 09/23/2022 at 11:34
== END ==
PROVIDERS: Family Provider Physician Assistant; PCP Internal Medicine; Referring Provider Transplant Surgery; Visit Provider Transplant Surgery
DX: N28.89 Other specified disorders of kidney and ureter (principal); Q61.3 Polycystic kidney, unspecified
CPT/HCPCS: 71250; 74178; Q9967

== ENCOUNTER → 2022-11-04 16:44 | Outpatient (CLI) | payer MEDICARE, SELFPAY ==
--- NOTE | 2022-11-04 | DI.RAD.S_ITS ---
PROCEDURE: XR CHEST 2V INDICATIONS: cough TECHNIQUE: 2 views of the chest were acquired. COMPARISON: [facility], CR, XR CHEST 1 VIEW, 10/16/2021, 11:21. [facility], CR, XR CHEST 2V, 09/22/2021, 15:35. FINDINGS: Surgical changes and devices: Left-sided port with the catheter tip at the upper 3rd of the SVC. Left chest clips. Lungs and pleura: Low lung volumes. Prominent pulmonary markings. No silhouetting is identified. No pleural effusions or pneumothorax. Mediastinum: Mediastinal contours are similar. Heart size is normal. Bones and chest wall: No suspicious bony abnormalities. Left lateral rib fracture. Likely 6th rib. Soft tissues appear unremarkable. IMPRESSION: Low lung volumes and prominent pulmonary markings. This could be due to pulmonary vasculature engorgement. Diffuse infectious/inflammatory etiology could have a similar appearance. Left-sided rib fracture. Dictated by: Mason Dutton M.D. on 11/05/2022 at 9:18 Approved by: Mason Dutton M.D. on 11/05/2022 at 9:21
--- NOTE | 2022-11-04 | DI.RAD.S_ITS ---
PROCEDURE: XR RIBS LT 2V INDICATIONS: rib pain TECHNIQUE: 2 views of the left ribs were acquired. COMPARISON: [facility], CR, XR CHEST 2V, 11/04/2022, 16:52. [facility], CT, CT CHEST WO CON, 09/23/2022, 9:40. FINDINGS: Surgical changes and devices: Left-sided port. Left chest wall clips. Bones and chest wall: Left lateral 7th rib fracture. Possible left 6th and 8th rib fracture. Minimal displacement. No suspicious bony lesions. Overlying soft tissues appear unremarkable. Lungs and pleura: The visualized lung appears clear. No pleural effusions or pneumothorax are visible. IMPRESSION: Left lateral rib fractures. No pneumothorax seen. Dictated by: Mason Dutton M.D. on 11/05/2022 at 9:21 Approved by: Mason Dutton M.D. on 11/05/2022 at 9:24
== END ==
PROVIDERS: Family Provider Physician Assistant; PCP Student in an Organized Health Care Education/Training Program; Referring Provider Student in an Organized Health Care Education/Training Program; Visit Provider Student in an Organized Health Care Education/Training Program
DX: R05.1 Acute cough (principal); R91.8 Other nonspecific abnormal finding of lung field; R07.81 Pleurodynia; W19.XXXA Unspecified fall, initial encounter
CPT/HCPCS: 71046; 71100